=== PATIENT | male | born 1985 | race Caucasian/White ===

== ENCOUNTER 2018-12-12 12:22 | Emergency (ER) | payer MEDICAID ==
[~2018-12-12] VITALS: Wt 89.0 kg
[2018-12-12 12:30] VITALS: BP 175/91; PULSE 71; RESP 18
[2018-12-12] MEDS ORDERED: LIDOCAINE 1% (MDV) 10 ML INJ INJ STA (14:04)
[2018-12-12] MEDS ORDERED: LIDOCAINE 1% (MDV) 20 ML INJ INJ STA (14:15)
[2018-12-12] MEDS ORDERED: ACETAMINOPHEN 325 MG TAB PO ONE (14:30)
[2018-12-12] MEDS ORDERED: ACET1TAB40 PO (14:47)
[2018-12-12] MEDS ORDERED: IBUP-1542 PO (14:47)
--- NOTE | 2018-12-12 14:52 | ERD ---
ER Documentation Chief Complaint Chief Complaint R HAND LAC HPI 33-year-old male presents with a laceration to the dorsum of his right hand today with a piece of sheet metal. Denies any crush injury or significant impact. He is able to extend the digits distal to the injury. He has no deficits or weakness. Tetanus is up-to-date. ROS All systems reviewed and are negative except as per history of present illness. Medications Home Meds Active Scripts Acetaminophen with Codeine (Acetaminophen-Cod #3 Tablet) 1 Each Tablet, 1 TAB PO Q6H PRN for PAIN, #7 TAB Prov:ANGIE SHELDON MD 12/12/18 Ibuprofen* (Motrin*) 600 Mg Tab, 600 MG PO Q6, #20 TAB Prov:ANGIE SHELDON MD 12/12/18 Allergies Allergies: Coded Allergies: No Known Allergy (Unverified , 12/12/18) PMhx/Soc Medical and Surgical Hx: pt denies Medical Hx, pt denies Surgical Hx Hx Alcohol Use: No Hx Substance Use: No Hx Tobacco Use: No Smoking Status: Never smoker FmHx Family History: No diabetes, No coronary disease, No other Physical Exam Vitals Vital Signs Date Temp Pulse Resp B/P (MAP) Pulse Ox O2 O2 Flow FiO2 Time Delivery Rate 12/12/18 98.1 71 18 175/91 90 12:30 (119) Physical Exam Const: No acute distress Head: Atraumatic Eyes: Normal Conjunctiva ENT: Normal External Ears, Nose and Mouth. Neck: Full range of motion. No meningismus. Resp: Clear to auscultation bilaterally Cardio: Regular rate and rhythm, no murmurs Abd: Soft, non tender, non distended. Normal bowel sounds Skin: No petechiae or rashes Back: No midline or flank tenderness Ext: No cyanosis, or edema. Right hand with approximately 4.5 cm laceration across the dorsum of the right hand. There is no appreciable tendon deficit or injury. Neur: Awake and alert Psych: Normal Mood and Affect Results 24 hrs Current Medications Medications Dose Sig/Maria R Start Time Status Last (Trade) Ordered Route PRN Stop Time Admin Dose Reason Admin 650 mg ONCE ONCE 12/12/18 DC 12/12/18 Acetaminophen PO 14:30 14:10 (Tylenol 12/12/18 14:31 Tab) Lidocaine 10 ml ONCE STAT 12/12/18 DC HCl INJ 14:04 (Lidocaine 12/12/18 14:05 1% (Mdv) 10 ml) Lidocaine 10 ml ONCE STAT 12/12/18 DC (Xylocaine INJ 14:15 1% (Mdv) 20 12/12/18 14:16 ml) Procedures/MDM Patient presents with a laceration across the dorsum of the right hand. Procedure note-right hand irrigated copiously with normal saline. 5 cc of lidocaine was used for local infiltration. 7 4-0 nylon sutures were used to reapproximate the wound. Patient tolerated procedure well and the wound was dressed. Patient shows no evidence of tendon deficits, ischemia, signs of infection. He will be discharged home with recommendation for 2-day wound check in 10 days suture removal. He should return sooner for fevers, redness, new worsening symptoms. Will be given information on hand clinic for any complications and for evaluation. The patient was stable with no new complaints during the ER course. Clinically, there is no current evidence to suggest meningitis, sepsis, acute abdomen, pneumonia, stroke, acute coronary syndrome, pulmonary embolism, aortic dissection or any other emergent condition appearing to require further evaluation or hospitalization. Patient counseled regarding my diagnostic impression and care plan. Prior to discharge all questions answered. Pt agrees with treatment plan and understands strict return precautions. Pt is instructed to follow up with primary care provider within 24-48 hours. Precautionary instructions provided including instructions to return to the ER if not improving or for any worsening or changing symptoms or concerns. Departure Diagnosis: Primary Impression: Hand laceration Condition: Stable Patient Instructions: Laceration, Hand Referrals: [facility] Additional Instructions: Cheque 2 espinoza para cheque para infeccion. cheque 10 espinoza para saca los puntos / grapas. ANGIE SHELDON MD Dec 12, 2018 14:52
== END 2018-12-12 15:17 | disposition home or self-care (01) ==
LOC: FTE 12:22
DX: S61.411A Laceration without foreign body of right hand, initial encounter (principal); W26.8XXA Contact with other sharp object(s), not elsewhere classified, initial encounter; Y92.9 Unspecified place or not applicable
CPT/HCPCS: 12002; Z7502; Z7610

== ENCOUNTER 2018-12-22 12:56 | Emergency (ER) | payer MEDICAID ==
[~2018-12-22] VITALS: Ht 170.2 cm; Wt 88.8 kg
[~2018-12-22 12:56] MED LIST: ACET1TAB40 PO; IBUP-1542 PO
[2018-12-22 12:59] VITALS: BP 132/74; PULSE 78; RESP 20; Ht 170.2 cm; Wt 88.8 kg
[2018-12-22] MEDS ORDERED: IBUP-1542 PO (15:23)
[2018-12-22] MEDS ORDERED: CEPH-443 PO (15:23)
--- NOTE | 2018-12-22 15:26 | ERD ---
ER Documentation Chief Complaint Chief Complaint Patient here for a suture removal HPI 33-year-old male presents for valuation for suture removal on her right hand. He was cut with some sheet metal approximately 9-day years ago and sutured by me. He is on Keflex. Complains of pain. Is no restricted range of motion, weakness, fevers, bleeding or discharge. ROS All systems reviewed and are negative except as per history of present illness. Medications Home Meds Active Scripts Ibuprofen* (Motrin*) 600 Mg Tab, 600 MG PO Q6, #15 TAB Prov:ANGIE SHELDON MD 12/22/18 Cephalexin* (Keflex*) 500 Mg Capsule, 500 MG PO QID for 5 Days, CAP Prov:ANGIE SHELDON MD 12/22/18 Acetaminophen with Codeine (Acetaminophen-Cod #3 Tablet) 1 Each Tablet, 1 TAB PO Q6H PRN for PAIN, #7 TAB Prov:ANGIE SHELDON MD 12/12/18 Ibuprofen* (Motrin*) 600 Mg Tab, 600 MG PO Q6, #20 TAB Prov:ANGIE SHELDON MD 12/12/18 Allergies Allergies: Coded Allergies: No Known Allergy (Unverified , 12/12/18) PMhx/Soc Medical and Surgical Hx: pt denies Medical Hx, pt denies Surgical Hx Hx Alcohol Use: No Hx Substance Use: No Hx Tobacco Use: No FmHx Family History: No diabetes, No coronary disease, No other Physical Exam Vitals Vital Signs Date Temp Pulse Resp B/P (MAP) Pulse Ox O2 O2 Flow FiO2 Time Delivery Rate 12/22/18 98.6 78 20 132/74 98 12:59 (93) Physical Exam Const: No acute distress Head: Atraumatic Eyes: Normal Conjunctiva ENT: Normal External Ears, Nose and Mouth. Neck: Full range of motion. No meningismus. Resp: Clear to auscultation bilaterally Cardio: Regular rate and rhythm, no murmurs Abd: Soft, non tender, non distended. Normal bowel sounds Skin: No petechiae or rashes Back: No midline or flank tenderness Ext: No cyanosis, or edema. Right hand laceration healing. There is some surrounding irritation or redness without warmth, fluctuance, discharge or bleeding. Wound appears incompletely healed. Patient able to extend all joints distal to the injury. Neur: Awake and alert Psych: Normal Mood and Affect Results 24 hrs Current Medications Medications Dose Sig/Maria R Start Time Status Last (Trade) Ordered Route PRN Stop Time Admin Dose Reason Admin Ibuprofen 600 mg ONCE ONCE 12/22/18 12/22/18 (Motrin) PO 15:30 15:18 12/22/18 15:31 Procedures/MDM Patient presents for recheck on his right hand laceration. There is some irritation but no gross signs of infection. It is high a tension area and is incompletely healed. I am recommending approximate 4-5-day continuation of antibiotics, and return at the time for suture removal. He has no evidence of deficits, signs of abscess, tenosynovitis, sepsis, additional complications. Departure Diagnosis: Primary Impression: Suture check Condition: Stable Patient Instructions: Wound Care Additional Instructions: emy ojeda 5 espinoza para sacar puntos. ANGIE SHELDON MD Dec 22, 2018 15:26
[2018-12-22] MEDS ORDERED: IBUPROFEN 600 MG TAB PO ONE (15:30)
== END 2018-12-22 15:42 | disposition home or self-care (01) ==
LOC: FTE 12:56
DX: Z48.01 Encounter for change or removal of surgical wound dressing (principal)
CPT/HCPCS: Z7502; Z7610; 99282

== ENCOUNTER 2019-03-21 08:21 | Emergency (ER) | payer MEDICAID ==
[~2019-03-21] VITALS: Ht 162.6 cm; Wt 88.8 kg
[~2019-03-21 08:21] MED LIST changes: +CEPH-443 PO
[2019-03-21 08:24] VITALS: BP 141/74; PULSE 74; RESP 18; Ht 162.6 cm; Wt 88.8 kg
[2019-03-21] MEDS ORDERED: LIDOCAINE/MYLANTA 40 ML BTL PO ONE (09:30)
[2019-03-21] MEDS ORDERED: FAMO-96 PO ×2 (10:10→10:11)
--- NOTE | 2019-03-21 10:19 | ERD ---
ER Documentation Chief Complaint Chief Complaint ap x 3 months 06/10 HPI Patient is a 33-year-old male who presents the ER for concerns of epigastric pain for the last 3 months. Patient states his pain is been intermittent and he describes it to be burning. He states his pain is worse today. Patient denies any fevers, chills, nausea, vomiting, lower abdominal pain, diarrhea or dysuria. Patient denies any chest pain or shortness of breath. Patient states he did eat spicy foods in the past however he is starting to cut down. No recent travel. No sick contacts ROS All systems reviewed and are negative except as per history of present illness. Medications Home Meds Active Scripts Famotidine* (Pepcid*) 20 Mg Tablet, 20 MG PO BID for 30 Days, TAB Prov:SIRIA COLON PA-C 03/21/19 Ibuprofen* (Motrin*) 600 Mg Tab, 600 MG PO Q6, #15 TAB Prov:ANGIE SHELDON MD 12/22/18 Cephalexin* (Keflex*) 500 Mg Capsule, 500 MG PO QID for 5 Days, CAP Prov:ANGIE SHELDON MD 12/22/18 Acetaminophen with Codeine (Acetaminophen-Cod #3 Tablet) 1 Each Tablet, 1 TAB PO Q6H PRN for PAIN, #7 TAB Prov:ANGIE SHELDON MD 12/12/18 Ibuprofen* (Motrin*) 600 Mg Tab, 600 MG PO Q6, #20 TAB Prov:ANGIE SHELDON MD 12/12/18 Discontinued Scripts Famotidine* (Pepcid*) 20 Mg Tablet, 20 MG PO BID for 4 Days, TAB Prov:SIRIA COLON PA-C 03/21/19 Allergies Allergies: Coded Allergies: No Known Allergy (Unverified , 12/12/18) PMhx/Soc Medical and Surgical Hx: pt denies Medical Hx, pt denies Surgical Hx History of Surgery: Yes (HAND) Anesthesia Reaction: No Hx Neurological Disorder: No Hx Respiratory Disorders: No Hx Cardiac Disorders: No Hx Psychiatric Problems: No Hx Miscellaneous Medical Probl: No Hx Alcohol Use: No Hx Substance Use: No Hx Tobacco Use: No Smoking Status: Never smoker FmHx Family History: No diabetes Physical Exam Vitals Vital Signs Date Temp Pulse Resp B/P (MAP) Pulse Ox O2 O2 Flow FiO2 Time Delivery Rate 03/21/19 98.6 74 18 141/74 100 08:24 (96) Physical Exam GENERAL: Well-developed, well-nourished male. Appears in no acute distress. HEAD: Normocephalic, atraumatic. EYES: Pupils are equally reactive bilaterally. EOMs grossly intact. No conjunctival erythema. ENT: Moist mucous membranes. No uvula deviation. No kissing tonsils. NECK: Supple. No meningismus. Normal range of motion of the neck. LUNG: Clear to auscultation bilaterally. No rhonchi, wheezing, rales or coarse breath sounds. HEART: Regular rate and rhythm. No murmurs, rubs or gallops. ABDOMEN: Soft, nondistended. Minimally tender to palpation in the epigastric region. positive bowel sounds in all four quadrants. No rebound tenderness, no guarding. (-) McBurney's point tenderness. No CVA tenderness. BACK: No midline tenderness. EXTREMITIES: Equal pulses bilaterally. No peripheral clubbing, cyanosis or edema. No unilateral leg swelling. NEUROLOGIC: Alert and oriented. Moving all four extremities without any difficulty. Normal speech. Steady gait. SKIN: Normal color. Warm and dry. No rashes or lesions. Results 24 hrs Current Medications Medications Dose Sig/Maria R Start Time Status Last (Trade) Ordered Route PRN Stop Time Admin Dose Reason Admin 40 ml ONCE ONCE 03/21/19 DC 03/21/19 Miscellaneous PO 09:30 09:37 Medication 03/21/19 09:31 (Gi Cocktail (2)) Procedures/MDM MEDICAL DECISION MAKING: This is of 33-year-old male who presents the ER for concerns of epigastric pain times 3 months. Patient states his symptoms are worse today. He describes his symptoms to be burning in nature.. Vital signs were reviewed. Patient is afebrile. Abdominal exam did reveal minimal tenderness to palpation in the epigastric region. Patient was given a GI cocktail. Patient reported improvement in symptoms. Patient symptoms are likely related to GERD versus gastritis. Patient was advised dietary changes. Low suspicion for acute coronary syndrome, AAA, mesenteric ischemia, lower lobe pneumonia, DKA, bowel perforation, cholecystitis, choledocholithiasis, ascending cholangitis, hepatic abscess, pancreatitis, PUD, gastritis, GERD, splenic rupture, diverticulitis, UTI, pyelonephritis, nephrolithiasis, appendicitis, constipation, testicular torsion, epididymitis, urethritis, or prostatitis. Patient was nontoxic, [id number] prior to discharge. PRESCRIPTIONS: Pepcid DISCHARGE: At this time, patient is stable for discharge and outpatient management. I have instructed the patient to follow-up with his/her primary care physician in 1-2 days. I have instructed the patient to promptly return to the ER at any time for any new or worsening symptoms including increased pain, nausea, vomiting, diarrhea, fever, weakness or LOC. The patient and/or family expressed understanding of and agreement with this plan. All questions were answered. Home care instructions were provided. Disclaimer: Inadvertent spelling and grammatical errors are likely due to EHR/dictation software use and do not reflect on the overall quality of patient care. Also, please note that the electronic time recorded on this note does not necessarily reflect the actual time of the patient encounter. Departure Diagnosis: Primary Impression: Epigastric pain Condition: Fair Patient Instructions: Gerd (Adult) Referrals: [facility] YOU HAVE RECEIVED A MEDICAL SCREENING EXAM AND THE RESULTS INDICATE THAT YOU DO NOT HAVE A CONDITION THAT REQUIRES URGENT TREATMENT IN THE EMERGENCY DEPARTMENT. FURTHER EVALUATION AND TREATMENT OF YOUR CONDITION CAN WAIT UNTIL YOU ARE SEEN IN YOUR DOCTORS OFFICE WITHIN THE NEXT 1-2 DAYS. IT IS YOUR RESPONSIBILITY TO MAKE AN APPOINTMENT FOR FOLOW-UP CARE. IF YOU HAVE A PRIMARY DOCTOR --you should call your primary doctor and schedule an appointment IF YOU DO NOT HAVE A PRIMARY DOCTOR YOU CAN CALL OUR PHYSICIAN REFERRAL HOTLINE AT IF YOU CAN NOT AFFORD TO SEE A PHYSICIAN YOU CAN CHOSE FROM THE FOLLOWING [facility] [address] [facility] [address] [facility] [facility] [address] [facility] [address] [facility] [address] [facility] [facility]. [address] [facility]. [facility] YOU HAVE RECEIVED A MEDICAL SCREENING EXAM AND THE RESULTS INDICATE THAT YOU DO NOT HAVE A CONDITION THAT REQUIRES URGENT TREATMENT IN THE EMERGENCY DEPARTMENT. FURTHER EVALUATION AND TREATMENT OF YOUR CONDITION CAN WAIT UNTIL YOU ARE SEEN IN YOUR DOCTORS OFFICE WITHIN THE NEXT 1-2 DAYS. IT IS YOUR RESPONSIBILITY TO MAKE AN APPOINTMENT FOR FOLOW-UP CARE. IF YOU HAVE A PRIMARY DOCTOR --you should call your primary doctor and schedule and appointment IF YOU DO NOT HAVE A PRIMARY DOCTOR YOU CAN CALL OUR PHYSICIAN REFERRAL HOTLINE AT . IF YOU CAN NOT AFFORD TO SEE A PHYSICIAN YOU CAN CHOSE FROM THE FOLLOWING [facility] INSTITUTIONS: [facility] [address] [place] [address] [facility] [address] [place] [address] [facility] + [facility] [address] [place] [address] Additional Instructions: Llame al doctor MAANA y brendan boris SADIA PARA DENTRO DE 1-2 KELLY.Dgale a la secretaria que nosotros le instruimos hacer esta sadia.Avise o llame si ng condicin se empeora antes de la sadia. Regresa aqui si peor o no mejor. SIRIA COLON PA-C Mar 21, 2019 10:19
== END 2019-03-21 10:20 | disposition home or self-care (01) ==
LOC: FTE 08:21
DX: R10.13 Epigastric pain (principal)
CPT/HCPCS: Z7502; Z7610; 99282

== ENCOUNTER 2019-06-01 06:09 | Emergency (ER) | payer MEDICAID ==
[~2019-06-01] VITALS: Ht 167.6 cm; Wt 88.5 kg
[~2019-06-01 06:09] MED LIST changes: +FAMO-96 PO
[2019-06-01 06:19] VITALS: Ht 167.6 cm; Wt 88.5 kg
[2019-06-01] MEDS ORDERED: ASPIRIN 325 MG TAB PO STA ×2 (06:31→08:57)
--- NOTE | 2019-06-01 07:25 | ERD ---
ER Documentation Chief Complaint Chief Complaint CP, SOB X'S 1 NIGHT HPI This is a 33-year-old male who presents for evaluation of chest pain and shortness of breath since last night. His symptoms are localized to his epigastric area, endorses pain with movement. He has no cardiac history, he denies tobacco use, he has not had any leg swelling, no cough or hemoptysis. Symptoms are constant, are not alleviated or aggravated by anything. ROS All systems reviewed and are negative except as per history of present illness. Medications Home Meds Active Scripts Famotidine* (Pepcid*) 20 Mg Tablet, 20 MG PO BID for 30 Days, TAB Prov:SIRIA COLON PA-C 03/21/19 Ibuprofen* (Motrin*) 600 Mg Tab, 600 MG PO Q6, #15 TAB Prov:ANGIE SHELDON MD 12/22/18 Cephalexin* (Keflex*) 500 Mg Capsule, 500 MG PO QID for 5 Days, CAP Prov:ANGIE SHELDON MD 12/22/18 Acetaminophen with Codeine (Acetaminophen-Cod #3 Tablet) 1 Each Tablet, 1 TAB PO Q6H PRN for PAIN, #7 TAB Prov:ANGIE SHELDON MD 12/12/18 Ibuprofen* (Motrin*) 600 Mg Tab, 600 MG PO Q6, #20 TAB Prov:ANGIE SHELDON MD 12/12/18 Allergies Allergies: Coded Allergies: No Known Allergy (Unverified , 12/12/18) PMhx/Soc History of Surgery: Yes (HAND) Anesthesia Reaction: No Hx Neurological Disorder: No Hx Respiratory Disorders: No Hx Cardiac Disorders: No Hx Psychiatric Problems: No Hx Miscellaneous Medical Probl: No Hx Alcohol Use: No Hx Substance Use: No Hx Tobacco Use: No Smoking Status: Never smoker Physical Exam Vitals Vital Signs Date Temp Pulse Resp B/P (MAP) Pulse Ox O2 O2 Flow FiO2 Time Delivery Rate 06/01/19 Nasal 2 06:47 Cannula 06/01/19 96.1 43 18 112/56 98 06:19 (74) Physical Exam Const: Well-developed, well-nourished nontoxic Head: Atraumatic Eyes: Normal Conjunctiva ENT: Normal External Ears, Nose and Mouth. Neck: Full range of motion. No meningismus. Resp: Clear to auscultation bilaterally, no wheezes rales rhonchi Cardio: Regular rate and rhythm, no murmurs Abd: Soft, non tender, non distended, no rebound or guarding, no McBurney's point tenderness, negative Cotton sign. Normal bowel sounds Skin: No petechiae or rashes Back: No midline or flank tenderness Ext: No cyanosis, or edema Neur: Awake and alert Psych: Normal Mood and Affect Result Diagram: [birth year]/01/1937 06/01/19 0637 Results 24 hrs Laboratory Tests Test 06/01/19 06:37 06/01/19 09:27 White Blood Count 9.5 10^3/ul Red Blood Count 4.60 10^6/ul Hemoglobin 14.5 g/dl Hematocrit 41.8 % Mean Corpuscular Volume 90.9 fl Mean Corpuscular Hemoglobin 31.5 pg Mean Corpuscular Hemoglobin Concent 34.7 g/dl Red Cell Distribution Width 11.9 % Platelet Count 233 10^3/UL Mean Platelet Volume 10.5 fl Immature Granulocytes % 0.300 % Neutrophils % 38.6 % Lymphocytes % 50.6 % Monocytes % 6.7 % Eosinophils % 3.3 % Basophils % 0.5 % Nucleated Red Blood Cells % 0.0 /100WBC Immature Granulocytes # 0.030 10^3/ul Neutrophils # 3.7 10^3/ul Lymphocytes # 4.8 10^3/ul Monocytes # 0.6 10^3/ul Eosinophils # 0.3 10^3/ul Basophils # 0.1 10^3/ul Nucleated Red Blood Cells # 0.0 10^3/ul Sodium Level 143 mmol/L Potassium Level 4.0 mmol/L Chloride Level 106 mmol/L Carbon Dioxide Level 26 mmol/L Anion Gap 11 Blood Urea Nitrogen 20 mg/dl Creatinine 0.81 mg/dl Est Glomerular Filtrat Rate mL/min > 60 mL/min Glucose Level 177 mg/dl Calcium Level 8.9 mg/dl Total Bilirubin 0.4 mg/dl Direct Bilirubin 0.00 mg/dl Indirect Bilirubin 0.4 mg/dl Aspartate Amino Transf (AST/SGOT) 34 IU/L Alanine Aminotransferase (ALT/SGPT) 59 IU/L Alkaline Phosphatase 100 IU/L Troponin I < 0.012 ng/ml < 0.012 ng/ml B-Type Natriuretic Peptide 11 PG/ML Total Protein 7.2 g/dl Albumin 4.2 g/dl Globulin 3.00 g/dl Albumin/Globulin Ratio 1.40 Current Medications Medications Dose Sig/Maria R Start Time Status Last (Trade) Ordered Route PRN Stop Time Admin Dose Reason Admin Aspirin 325 mg ONCE STAT 06/01/19 DC 06/01/19 (Aspirin) PO 06:31 06/01/19 06:36 06:32 40 ml ONCE ONCE 06/01/19 DC 06/01/19 Miscellaneous PO 07:30 06/01/19 07:36 Medication 07:34 (Gi Cocktail (2)) Ondansetron 4 mg ONCE STAT 06/01/19 DC HCl (Zofran IV 08:36 06/01/19 Inj) 08:37 Ketamine 20 mg ONCE STAT 06/01/19 DC HCl IV 08:36 06/01/19 (Ketamine 08:37 HCl) Aspirin 325 mg ONCE STAT 06/01/19 DC (Aspirin) PO 08:57 06/01/19 08:58 Procedures/MDM 33-year-old male presents for evaluation of chest pain/abdominal pain. On exam patient has epigastric tenderness, his EKG showed no evidence of ischemia, given his symptoms, the patient was evaluated for acute coronary syndrome. EKG x2 showed no remarkable changes. EKG: Rate/Rhythm: Normal Sinus Rhythm with early repolarization pattern QRS, ST, T-waves: No changes consistent w/ acute ischemia Impression: No evidence of ischemia or arrhythmia Repeat EKG: Rate/Rhythm: Normal Sinus Rhythm with early repolarization pattern QRS, ST, T-waves: No changes consistent w/ acute ischemia Impression: No evidence of ischemia or arrhythmia 10:21 AM: Patient feels better, ultrasound notable gallstones, patient with no signs or symptoms of acute cholecystitis, recommended primary care follow-up, at discharge patient was in no distress. Departure Diagnosis: Primary Impression: Chest pain Chest pain type: unspecified Qualified Codes: R07.9 - Chest pain, unspecified Condition: Stable JOCELYNN DOZIER MD Jun 01, 2019 07:25
[2019-06-01] MEDS ORDERED: LIDOCAINE/MYLANTA 40 ML BTL PO ONE (07:30)
[2019-06-01] MEDS ORDERED: KETAMINE HCL (50 MG/ML) 1ml syringe IV STA (08:36)
[2019-06-01] MEDS ORDERED: ONDANSETRON 4 MG INJ IV STA (08:36)
[2019-06-01 10:32] VITALS: BP 112/57; PULSE 67; RESP 18
[2019-06-01] MEDS ORDERED: FAMO-96 PO (10:38)
== END 2019-06-01 11:16 | disposition home or self-care (01) ==
LOC: E/R 06:09
DX: K80.20 Calculus of gallbladder without cholecystitis without obstruction (principal)
CPT/HCPCS: 36415; 71045; 76705; 80053; 83880; 84484; 85025; 93005; Z7502; Z7610